=== PATIENT | female | born 1955 ===

== ENCOUNTER 2018-12-24 19:55 | Emergency (ER) | payer OTHER ==
[~2018-12-24] VITALS: Ht 162.6 cm; Wt 86.2 kg
[~2018-12-24 19:55] MED LIST: ATENOLOL100 MG PO; GABAPENTIN MC; NIFEDIPINE XL30 MG PO
[2018-12-25] MEDS ORDERED: KETO10TA2 PO (03:43)
== END 2018-12-25 04:08 ==
LOC: ER 19:55 → CPU-OBS 20:05 → ER 20:05
DX: R07.89 Other chest pain (principal); M94.0 Chondrocostal junction syndrome [Tietze]
CPT/HCPCS: G0378; G0379; 93005

== ENCOUNTER → 2019-02-07 | Emergency (ER) | payer OTHER ==
[~2019-02-07] MED LIST changes: +KETO10TA2 PO
== END | disposition home or self-care (01) ==
LOC: ER 21:48
DX: M70.72 Other bursitis of hip, left hip (principal)